=== PATIENT | male | born 1985 ===

== ENCOUNTER 2018-11-07 08:28 | Emergency (ER) | payer OTHER, SELFPAY ==
[2018-11-07 08:29] VITALS: BMI 26.6
[2018-11-07 08:44] VITALS: RESP 18; TEMP 97.6
[2018-11-07] MEDS ORDERED: Oxycodone/Acetaminophen 5/325 mg Tab PO STA (09:34)
--- NOTE | 2018-11-07 10:12 | RAD ---
Date of service: 11/07/2018 PROCEDURE: Left Ankle Radiographs. HISTORY: ankle pain sp sprain COMPARISON: None available. TECHNIQUE: 3 views obtained. FINDINGS: BONES: Normal. No fracture. JOINTS: Normal. No osteoarthritis. Ankle mortise maintained. Talar dome intact SOFT TISSUES: Mild subcutaneous edema mostly lateral aspect. OTHER FINDINGS: None. IMPRESSION: No fracture or dislocation is suggested. Minimal mild soft tissue swelling in the area of interest is noted.
--- NOTE | 2018-11-07 10:13 | RAD ---
Date of service: 11/07/2018 PROCEDURE: Left Foot Radiographs. HISTORY: pain COMPARISON: None. TECHNIQUE: 3 views obtained. FINDINGS: BONES: No fracture appreciated. 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 IMPRESSION: No fracture or subluxation. Other findings as above.
--- NOTE | 2018-11-07 10:19 | ED PDOC ---
Lower Extremity Pain/Injury Time Seen by Provider: 11/07/18 08:35 Chief Complaint (Nursing): Lower Extremity Problem/Injury Chief Complaint (Provider): Lower Extremity Problem/Injury History Per: Patient History/Exam Limitations: no limitations Onset/Duration Of Symptoms: Days Current Symptoms Are (Timing): Still Present Additional Complaint(s): 33 year old male with a past medical history of asthma who is presenting to the ED for evaluation of left ankle pain onset yesterday. Patient states that he was walking down stairs when he twisted his ankle. He admits that he is able to ambulate but experiences pain. Patient reports that he took Motrin 800 mg at 7 am this morning. He denies any other medical complaints at this time. PMD: Clinic Past Medical History Reviewed: Historical Data, Nursing Documentation, Vital Signs Vital Signs: Last Vital Signs Temp 97.6 F 11/07/18 08:36 Pulse 95 H 11/07/18 08:36 Resp 18 11/07/18 08:36 BP 133/90 11/07/18 08:36 Pulse Ox 97 11/07/18 08:36 - Medical History PMH: Asthma - Surgical History Surgical History: No Surg Hx - Family History Family History: States: Unknown Family Hx - Social History Current smoker - smoking cessation education provided: Yes (heavy) Alcohol: Social Drugs: Denies - Immunization History Hx Tetanus Toxoid Vaccination: No Hx Influenza Vaccination: No Hx Pneumococcal Vaccination: No - Home Medications Home Medications: Ambulatory Orders Medication Instructions Recorded No Known Home Med 11/07/18 - Allergies Allergies/Adverse Reactions: Allergies Allergy/AdvReac Type Severity Reaction Status Date / Time No Known Allergies Allergy Unverified 11/07/18 08:36 Review of Systems ROS Statement: Except As Marked, All Systems Reviewed And Found Negative Musculoskeletal: Positive for: Leg Pain, Foot Pain Physical Exam - Reviewed Nursing Documentation Reviewed: Yes Vital Signs Reviewed: Yes - Physical Exam Appears: Positive for: Non-toxic, No Acute Distress Head Exam: Positive for: ATRAUMATIC Skin: Positive for: Normal Color, Warm, DRY Neck: Positive for: Normal Cardiovascular/Chest: Negative for: Murmur Respiratory: Negative for: Respiratory Distress Pulses-Dorsalis Pedis (L): 2+ Pulses-Dorsalis Pedis (R): 2+ Back: Positive for: Normal Inspection Extremity: Positive for: Other (left lateral malleolus: tenderness and swelling with limited ROM secondary to pain. neurovascular intact. no cellulitis, bony deformity or open wounds. ) Neurological/Psych: Positive for: Awake, Alert, Normal Tone, Oriented. Negative for: Motor/Sensory Deficits - ECG O2 Sat by Pulse Oximetry: 97 (RA) Pulse Ox Interpretation: Normal Medical Decision Making Medical Decision Making: Time: 9:34 Plan: pain in left ankle, rule out fracture --Percocet 1 tab PO --X-Ray Left Foot --X-Ray Left Ankle X-Ray Left Foot: Date of service: 11/07/2018 PROCEDURE: Left Foot Radiographs. HISTORY: pain COMPARISON: None. TECHNIQUE: 3 views obtained. FINDINGS: BONES: No fracture appreciated. 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 IMPRESSION: No fracture or subluxation. Other findings as above. X-Ray Left Ankle: Date of service: 11/07/2018 PROCEDURE: Left Ankle Radiographs. HISTORY: ankle pain sp sprain COMPARISON: None available. TECHNIQUE: 3 views obtained. FINDINGS: BONES: Normal. No fracture. JOINTS: Normal. No osteoarthritis. Ankle mortise maintained. Talar dome intact SOFT TISSUES: Mild subcutaneous edema mostly lateral aspect. OTHER FINDINGS: None. IMPRESSION: No fracture or dislocation is suggested. Minimal mild soft tissue swelling in the area of interest is noted. 11:15 Patient's ankle/foot will be splinted, and crutches given with crutch education provided. explained to patient that xrays can only rule out bony fracture and does not assess ligaments, and will need outpt MRI for that via orthopedics. Pt will be discharged home with outpatient orthopedic follow-up. Scribe Attestation: Documented by Berkley Magana, acting as a scribe for Sonia Hong MD. Provider Scribe Attestation: All medical record entries made by the Scribe were at my direction and personally dictated by me. I have reviewed the chart and agree that the record accurately reflects my personal performance of the history, physical exam, medical decision making, and the department course for this patient. I have also personally directed, reviewed, and agree with the discharge instructions and disposition. Disposition - Clinical Impression Clinical Impression: Ankle sprain - Patient ED Disposition Is Patient to be Admitted: No Counseled Patient/Family Regarding: Studies Performed, Diagnosis, Need For Followup - Disposition Referrals: [facility] [Outside] Joaquin Palacios MD [Staff Provider] - Disposition: Routine/Home Disposition Time: 11:15 Condition: IMPROVED Additional Instructions: follow up with orthopedist as instructed this week take motrin for pain return to the ER with any worsening or concerning symptoms Instructions: Ankle Sprain (DC) Forms: [facility] (Spanish)
[2018-11-07 11:30] VITALS: BP 131/75; PULSE 78
[2018-11-07 17:49] VITALS: O2SAT 97
== END 2018-11-07 11:32 | disposition home or self-care (01) ==
LOC: H.ER 08:28
DX: S93.402A Sprain of unspecified ligament of left ankle, initial encounter (principal); X50.9XXA Other and unspecified overexertion or strenuous movements or postures, initial encounter; Y92.89 Other specified places as the place of occurrence of the external cause